=== PATIENT | male | born 1985 | race African-American/Black ===

== ENCOUNTER → 2019-06-04 | Emergency (ER) | payer OTHER ==
[~2019-06-04] VITALS: Ht 188 cm; Wt 90.7 kg
[~2019-06-04] MED LIST: ALBUTEROL SULF 2.5 MG/0.5ML(0.5%) NEB SOLN NEB ONE; AZITHROMYCIN 500MG/ 250ML 250 ML IV ONE; HYDROcodone-ACET 5/325MG TAB PO ONE; IPRATROPIUM BROM 0.5 MG/2.5ML INH SOL NEB ONE; KETOROLAC TROMETH 15 mg/ml 1ML VL IV ONE; KETOROLAC TROMETH 30 MG/ML 1ML VIAL ONE; OSELTAMIVIR 75 MG CAP PO ONE; SODIUM CHLORIDE 0.9% 1,000 ML IV ONE; methylPREDNISolone SOD SUCC 125 MG/2 ML VL IV ONE
[2019-06-04 06:19] LABS: Basophils # (auto) 0.1 10 ^3/uL (0-0.2); Basophils % (auto) 0.7 % (0.0-2.0); Eosinophils # (auto) 0 10 ^3/uL (0-0.8); Eosinophils % (auto) 0.3 % (0.0-7.0); Hematocrit 49.9 % (41.0-53.0); Hemoglobin 16.6 g/dL (13.5-17.5); Lymphocytes # (auto) 1.3 10 ^3/uL (0.4-5.4); Lymphocytes % (auto) 9.2 % (10.0-50.0); Mean Corpuscular Hemoglobin 31.4 pg (28.0-32.0); Mean Corpuscular Hgb Conc. 33.3 g/dL (32.0-36.0); Mean Corpuscular Volume 94.4 fL (80.0-100.0); Monocytes # (auto) 1.7 10 ^3/uL (0-1.3); Monocytes % (auto) 12.1 % (0.0-12.0); Neutrophils # (auto) 10.6 10 ^3/uL (1.6-8.6); Neutrophils % (auto) 77.7 % (37.0-80.0); Platelet Count (auto) 218 10^3/uL (140-450); Red Blood Cells 5.29 10^6/uL (4.5-5.90); Red Cell Distribution Width 12.8 % (11.8-14.3); White Blood Cell 13.6 10^3/uL (4.4-10.8)
[2019-06-04 06:38] LABS: Albumin 3.8 g/dL (3.4-5.0); BUN/Creatinine Ratio 8.6; Calcium 9.2 mg/dL (8.5-10.1); Potassium 3.7 mmol/L (3.5-5.1)
[2019-06-04 06:41] LABS: Bilirubin, Total 0.7 mg/dL (0.2-1.0); Total Protein 7.8 g/dL (6.4-8.2)
[2019-06-04 09:10] LABS: Urine Bacteria NONE SEEN /hpf (None Seen); Urine Blood Negative /uL (Negative); Urine Mucus FEW (None Seen); Urine Specific Gravity 1.039 (1.001-1.035); Urine WBC 13 /hpf (0 - 3)
[2019-06-04 09:23] LABS: Amphetamine Screen, Urine NEGATIVE (NEGATIVE); Barbiturate Scree,Urine NEGATIVE (NEGATIVE); Benzodiazephine Screen, Urine NEGATIVE (NEGATIVE); Cannabinoid Screen, Urine POSITIVE (NEGATIVE); Cocaine Screen, Urine NEGATIVE (NEGATIVE); Opiate Scree,Urine NEGATIVE (NEGATIVE); Phencyclidine Screen, Urine NEGATIVE (NEGATIVE)
[2019-06-04 10:05] VITALS: BP 118/61
== END | disposition home or self-care (01) ==
LOC: ER 03:34
DX: K52.9 Noninfective gastroenteritis and colitis, unspecified (principal); F12.10 Cannabis abuse, uncomplicated; N39.0 Urinary tract infection, site not specified; J45.909 Unspecified asthma, uncomplicated; Z90.49 Acquired absence of other specified parts of digestive tract; Z88.5 Allergy status to narcotic agent
CPT/HCPCS: 36415; 71045; 80053; 80307; 81001; 83605; 83735; 85025; 87070; 87804; 87880; 93005; 94640; 96365; 96366; 96375; 99284; J0456; J1885; J2930; J7644